=== PATIENT | male | born 1960 | race Caucasian/White ===

== ENCOUNTER 2023-10-15 07:54 | Outpatient (CLI) | payer OTHER ==
[~2023-10-15 07:54] MED LIST: AVAPRO150 MG PO; AVAPRO300 MG; CHLORTHALIDONE25 MG; METFORMIN HCL500 MG
== END 2023-10-15 08:12 | disposition home or self-care (01) ==
LOC: TOM 07:54
PROVIDERS: ATTEND Internal Medicine Gastroenterology
DX: K56.609 Unspecified intestinal obstruction, unspecified as to partial versus complete obstruction (principal); N40.0 Benign prostatic hyperplasia without lower urinary tract symptoms